=== PATIENT | male | born 1970 | race American Indian/Alaskan Native ===

== ENCOUNTER 2016-11-22 22:34 | Emergency (ER) | payer BC, OTHER ==
[2016-11-22 23:21] VITALS: BP 137/80; PULSE 100; RESP 18; TEMP 98.5; O2SAT 95
--- NOTE | 2016-11-23 01:46 | ED PDOC ---
HPI: General Adult Time Seen by Provider: 11/23/16 01:40 Chief Complaint (Nursing): Flu-like Symptoms Chief Complaint (Provider): flu-like symptoms History Per: Patient History/Exam Limitations: no limitations Onset/Duration Of Symptoms: Days (5) Current Symptoms Are (Timing): Still Present Severity: Moderate Additional Complaint(s): Raman Starks is a 46 y/o male presenting to the ER on 11/23/2016 with flu-like symptoms x5 days. Patient reports being evaluated four days ago by his PMD initially for ear pain and was given prescriptions for Singulair, Flonase, and Claritin after he was told the source of pain was from allergies. However, he reports developing a subjective fever last night with associated chills, throat pain, chest pain, myalgia, productive cough w/ sputum and ear pain. Patient took tylenol prior to arrival with minimal relief. Past Medical History Reviewed: Historical Data, Nursing Documentation, Vital Signs Vital Signs: Last Vital Signs Temp 98.5 F 11/22/16 23:18 Pulse 100 H 11/22/16 23:18 Resp 18 11/22/16 23:18 BP 137/80 11/22/16 23:18 Pulse Ox 95 11/23/16 03:13 - Medical History PMH: No Chronic Diseases - Surgical History Surgical History: No Surg Hx - Family History Family History: States: Unknown Family Hx - Social History Current smoker - smoking cessation education provided: No Alcohol: None Drugs: Denies - Home Medications Home Medications: Ambulatory Orders Medication Instructions Recorded Ibuprofen [Motrin] 600 mg PO Q6H PRN #20 tab 10/04/14 Amoxicillin 875 mg PO BID #20 tab 11/23/16 - Allergies Allergies/Adverse Reactions: Allergies Allergy/AdvReac Type Severity Reaction Status Date / Time No Known Allergies Allergy Verified 10/04/14 09:44 Review of Systems ROS Statement: Except As Marked, All Systems Reviewed And Found Negative Constitutional: Positive for: Fever, Chills, Other ENT: Positive for: Ear Pain, Throat Pain Cardiovascular: Positive for: Chest Pain Respiratory: Positive for: Cough, Sputum Musculoskeletal: Positive for: Other ((+) myalgia) Physical Exam - Reviewed Nursing Documentation Reviewed: Yes Vital Signs Reviewed: Yes - Physical Exam Appears: Positive for: Non-toxic, No Acute Distress Head Exam: Positive for: ATRAUMATIC, NORMOCEPHALIC Skin: Positive for: Normal Color, Warm, Dry Eye Exam: Positive for: Normal appearance, EOMI, PERRL ENT: Positive for: TM Is/Are (effusions bilaterally ), Pharyngeal Erythema, Other ((+) tonsillar erythema) Neck: Positive for: Normal, Painless ROM, Supple Cardiovascular/Chest: Positive for: Regular Rate, Rhythm. Negative for: Murmur Respiratory: Positive for: Normal Breath Sounds. Negative for: Respiratory Distress Extremity: Positive for: Normal ROM. Negative for: Deformity, Swelling Neurologic/Psych: Positive for: Alert, Oriented. Negative for: Motor/Sensory Deficits - ECG O2 Sat by Pulse Oximetry: 95 Medical Decision Making Medical Decision Makin:40 Initial Impression- Otitis Media, differential includes Viral Syndrome vs. Rapid Strep Initial Plan- * Influenza * Rapid Strep * Re-evaluate 03:13 Influenza and Rapid Strep both negative. Pt will be discharged routinely with Rx for Amoxcillin. Discussed results at great length with pt, who had all questions and concerns answered. Encouraged pt to schedule follow-up with PMD within 1-2 days. Additionally encouraged pt to take motrin and sudafed as needed. Condition is stable for discharge. Advised to return if symptoms persist or worsen. Clinical impression- Otitis Media Documented by Payton Mahmood, acting as a scribe for Veda Gomez MD. All medical record entries made by the Scribe were at my direction and personally dictated by me. I have reviewed the chart and agree that the record accurately reflects my personal performance of the history, physical exam, medical decision making, and the department course for this patient. I have also personally directed, reviewed, and agree with the discharge instructions and disposition. Disposition - Clinical Impression Clinical Impression: Otitis media, URI, acute - Patient ED Disposition Is Patient to be Admitted: No Counseled Patient/Family Regarding: Studies Performed, Diagnosis, Need For Followup - Disposition Referrals: Ollie Christy MD [Primary Care Provider] - Andrea Denise MD [Staff Provider] - Disposition: Routine/Home Disposition Time: 03:12 Condition: GOOD Additional Instructions: Take motrin and sudafed for congestion. Follow up with your PCP or ENT in 3 days. Prescriptions: Amoxicillin 875 mg PO BID #20 tab Instructions: Serous Otitis Media (ED)
== END 2016-11-23 03:34 | disposition home or self-care (01) ==
LOC: H.ER 22:34
DX: J06.9 Acute upper respiratory infection, unspecified (principal); H66.90 Otitis media, unspecified, unspecified ear; M79.1 Myalgia; R07.9 Chest pain, unspecified